=== PATIENT | male | born 1955 | race Caucasian/White ===

== ENCOUNTER 2018-02-15 08:24 | Emergency (ER) | payer MEDICAID ==
[2018-02-15 08:33] VITALS: BMI 31.0
[2018-02-15 08:37] VITALS: RESP 16; TEMP 98.4
--- NOTE | 2018-02-15 08:59 | ED PDOC ---
Arrival/HPI - General Historian: Patient, Family - History of Present Illness Narrative History of Present Illness (Text): 02/15/18 08:57 Patient is a 62 year old [place] male with past medical history of hypertension, asthma, kidney stones, diabetes, hypothyroidism who presents to the emergency dept for right sided flank pain that started this morning. Patient states that at approximately 5am he woke up with Right flank pain. Pain is intermittent in nature and rates it 6-7/10 on pain scale. Pain is similar to when he was diagnosed with renal stone in July 2017. He admits to dysuria after urination. Denies fevers, chills, nausea/vomiting, abdominal pain, hematuria, constipation, diarrhea. PMD: Shanda Bryan Time/Duration: 4-6 hours Symptom Onset: Sudden Symptom Course: Unchanged Severity Level: 7 Activities at Onset: Sleeping <Lisa Sky - Last Filed: 02/15/18 14:11> <Amador Rocha - Last Filed: 02/15/18 18:08> - General Chief Complaint: Pain, Chronic Time Seen by Provider: 02/15/18 08:57 Past Medical History - Provider Review Nursing Documentation Reviewed: Yes - Infectious Disease Hx of Infectious Diseases: None - Tetanus Immunization Tetanus Immunization: Unknown - Cardiac Hx Hypertension: Yes - Pulmonary Hx Asthma: Yes - Neurological Hx Neurological Disorder: No - HEENT Hx HEENT Disorder: No - Renal Hx Kidney Stones: Yes (Bilaterally; 2017) - Endocrine/Metabolic Hx Diabetes Mellitus Type 2: Yes - Hematological/Oncological Hx Blood Disorders: No - Integumentary Hx Dermatological Disorder: No - Musculoskeletal/Rheumatological Hx Musculoskeletal Disorders: Yes Hx Back Pain: Yes Hx Falls: No Hx Gout: Yes - Gastrointestinal Hx Gastrointestinal Disorders: No - Genitourinary/Gynecological Hx Genitourinary Disorders: No - Psychiatric Hx Psychophysiologic Disorder: No Hx Substance Use: No - Surgical History Hx Cardiac Catheterization: Yes - Suicidal Assessment Feels Threatened In Home Enviroment: No <Lisa Sky - Last Filed: 02/15/18 14:11> Family/Social History - Physician Review Nursing Documentation Reviewed: Yes Family/Social History: Unknown Family HX Smoking Status: Never Smoked Hx Alcohol Use: No Hx Substance Use: No Hx Substance Use Treatment: No <Lisa Sky - Last Filed: 02/15/18 14:11> Allergies/Home Meds <Lisa Sky - Last Filed: 02/15/18 14:11> <Amador Rocha - Last Filed: 02/15/18 18:08> Allergies/Adverse Reactions: Allergies No Known Allergies Allergy (Verified 02/15/18 08:37) Home Medications: Home Meds Medication Instructions Recorded Confirmed Acetaminophen with Codeine 1 tab PO Q6H 07/31/17 02/15/18 [Tylenol with Codeine No. 3 300 mg-30 mg] Allopurinol [Zyloprim] 100 mg PO DAILY 07/31/17 02/15/18 Enalapril Maleate [Vasotec] 5 mg PO DAILY 07/31/17 02/15/18 Hydrochlorothiazide [Microzide] 12.5 mg PO DAILY 07/31/17 02/15/18 Levothyroxine [Levoxyl] 0.025 mg PO DAILY 07/31/17 02/15/18 Pantoprazole [Protonix] 40 mg PO DAILY 07/31/17 02/15/18 Potassium Citrate [Urocit-K] 15 meq PO BID 07/31/17 02/15/18 metFORMIN [glucOPHAGE] 1,000 mg PO BID 07/31/17 02/15/18 Review of Systems - Review of Systems Constitutional: Normal. absent: Fatigue, Fevers Eyes: Normal. absent: Vision Changes ENT: Normal. absent: Hearing Changes Respiratory: Normal. absent: SOB, Cough Cardiovascular: Normal. absent: Chest Pain, Palpitations Gastrointestinal: Normal. absent: Abdominal Pain, Constipation, Diarrhea, Nausea, Vomiting Genitourinary Male: Dysuria. absent: Hematuria Neurological: Normal. absent: Headache, Dizziness <Lisa Sky - Last Filed: 02/15/18 14:11> Physical Exam Vital Signs Reviewed: Yes Vital Signs Temp Pulse Resp BP Pulse Ox 02/15/18 08:33 98.4 F 76 16 143/90 96 02/15/18 08:24 98.4 F 76 16 143/90 98 Temperature: Afebrile Blood Pressure: Hypertensive Pulse: Regular Respiratory Rate: Normal Appearance: Positive for: Non-Toxic Pain Distress: Mild Mental Status: Positive for: Alert and Oriented X 3 - Systems Exam Head: Present: Atraumatic, Normocephalic Pupils: Present: PERRL Extroacular Muscles: Present: EOMI Mouth: Present: Moist Mucous Membranes Neck: Present: Normal Range of Motion Respiratory/Chest: Present: Clear to Auscultation, Good Air Exchange. No: Respiratory Distress, Accessory Muscle Use Cardiovascular: Present: Regular Rate and Rhythm, Normal S1, S2 Abdomen: Present: Normal Bowel Sounds. No: Tenderness, Distention, Peritoneal Signs Back: Present: CVA Tenderness (Right) Upper Extremity: Present: Normal Inspection. No: Cyanosis, Edema Lower Extremity: Present: Normal Inspection. No: Edema, CALF TENDERNESS Skin: Present: Warm, Dry, Normal Color Psychiatric: Present: Alert, Oriented x 3 <Lisa Sky - Last Filed: 02/15/18 14:11> Vital Signs Temp Pulse Resp BP Pulse Ox 02/15/18 10:32 79 16 145/89 97 02/15/18 08:33 98.4 F 76 16 143/90 96 02/15/18 08:24 98.4 F 76 16 143/90 98 <Amador Rocha - Last Filed: 02/15/18 18:08> Medical Decision Making ED Course and Treatment: 02/15/18 09:14 Patient seen and examined at bedside. Patient complaining of right flank pain since 5am this morning. +R CVA tenderness on exam. We will order CT abd/pelvis w/o contrast, Urinalysis, Toradol 30mg IVP, Flomax 0.4mg PO, NS 1 L bolus. 02/15/18 10:[address] scan. Currently sleeping comfortably. 02/15/18 12:00 Labs and imaging results reviewed. Patient feeling better. Will discharge patient home with instructions to follow up with PMD outpatient. - RAD Interpretation Narrative RAD Interpretations (Text): 02/15/18 11:12 CT abd/pelvis: no hydronephrosis or obstructing renal calculus. 3.2cm exophytic left renal cyst. Right upper pole renal cyst measures 2.2 cm. 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 62 y/o M p/w bilateral flank pain. On exam, laying still. R CVA tenderness. - Lab Interpretations Lab Results: 02/15/18 09:10 02/15/18 09:10 Lab Results 02/15/18 09:10: Sodium 139, Potassium 4.2, Chloride 105, Carbon Dioxide 26, Anion Gap 12, BUN 18, Creatinine 1.0, Est GFR ( Amer) > 60, Est GFR (Non- Af Amer) > 60, Random Glucose 91, Calcium 8.7, Total Bilirubin 0.5, AST 19, ALT 30, Alkaline Phosphatase 100, Total Protein 7.0, Albumin 3.5, Globulin 3.4, Albumin/Globulin Ratio 1.0 L, Lipase 73 02/15/18 09:10: WBC 9.3, RBC 5.17, Hgb 16.5, Hct 49.1, MCV 95.0, MCH 31.9, MCHC 33.6, RDW 13.6, Plt Count 187, MPV 10.3, Gran % 71.6 H, Lymph % (Auto) 19.4 L, [place] % (Auto) 7.2 H, Eos % (Auto) 1.8, Baso % (Auto) 0.0, Gran # 6.67 H, Lymph # (Auto) 1.8, [place] # (Auto) 0.7 H, Eos # (Auto) 0.2, Baso # (Auto) 0.00 02/15/18 09:10: Urine Color Yellow, Urine Appearance Clear, Urine pH 6.0, Ur Specific [place] 1.020, Urine Protein Negative, Urine Glucose (UA) >=1000, Urine Ketones Negative, Urine Blood Negative, Urine Nitrate Negative, Urine Bilirubin Negative, Urine Urobilinogen 0.2, Ur Leukocyte Esterase Negative - RAD Interpretation Radiology Orders: 02/15/18 09:11 ABD & PELVIS W/O PO OR IV CONT [CT] Stat - Medication Orders Current Medication Orders: Discontinued Medications Sodium Chloride (Sodium Chloride 0.9%) 1,000 mls @ 999 mls/hr IV .Q1H1M STA Stop: 02/15/18 10:14 Last Admin: 02/15/18 09:43 Dose: 999 mls/hr eMAR Start Stop Document 02/15/18 09:43 EB (Rec: 02/15/18 09:45 EB [id number]) Intravenous Solution Start Date 02/15/18 Start Time 09:45 End Date 02/15/18 End time 10:45 Total Infusion Time 60 Ketorolac Tromethamine (Toradol) 30 mg IVP STAT STA Stop: 02/15/18 09:00 Last Admin: 02/15/18 09:41 Dose: 30 mg MAR Pain Assessment Document 02/15/18 09:41 (Rec: 02/15/18 09:42 [email or web address] Pain Reassessment Is this a pain reassessment? No Sleep Is patient sleeping during reassessment? No Presence of Pain Presence of Pain Yes Pain Scale Used Protocol: PSCALES Pain Scale Used Numeric IVP Administration Document 02/15/18 09:41 (Rec: 02/15/18 09:42 [email or web address] Charges for Administration # of IVP Administrations 1 Tamsulosin HCl (Flomax) 0.4 mg PO STAT STA Stop: 02/15/18 09:12 Last Admin: 02/15/18 09:43 Dose: 0.4 mg <Amador Rocha - Last Filed: 02/15/18 18:08> Disposition/Present on Arrival - Present on Arrival Any Indicators Present on Arrival: No History of DVT/PE: No History of Uncontrolled Diabetes: No Urinary Catheter: No History of Decub. Ulcer: No History Surgical Site Infection Following: None - Disposition Have Diagnosis and Disposition been Completed?: Yes Patient Plan: Discharge <Lisa Sky - Last Filed: 02/15/18 14:11> - Present on Arrival Any Indicators Present on Arrival: No - Disposition Have Diagnosis and Disposition been Completed?: Yes Disposition Time: 12:00 Patient Plan: Discharge <Amador Rocha - Last Filed: 02/15/18 18:08> - Disposition Diagnosis: Flank pain Disposition: HOME/ ROUTINE Condition: GOOD Discharge Instructions (ExitCare): Flank Pain Prescriptions: Famotidine [Pepcid] 1 tab PO BID #14 tab Ibuprofen [Motrin] 600 mg PO Q6 #25 tab Referrals: Shanda Bryan MD [Family Provider] - Follow up with primary Forms: [employer] (Hungarian)
[2018-02-15] MEDS ORDERED: Sodium Chloride 0.9% 1,000 ML IV STA (09:14)
[2018-02-15 09:27] LABS: URINE APPEARANCE CLEAR (CLEAR); URINE BILIRUBIN NEGATIVE (NEGATIVE); URINE BLOOD NEGATIVE (NEGATIVE); URINE COLOR YELLOW (YELLOW); URINE GLUCOSE (UA) >=1000 mg/dL (NEGATIVE); URINE LEUKOCYTE ESTERASE NEGATIVE Leu/uL (NEGATIVE); URINE PROTEIN NEGATIVE mg/dL (<30 mg/dL); URINE UROBILINOGEN 0.2 E.U./dL (<1 E.U./dL)
--- NOTE | 2018-02-15 11:02 | CT ---
PROCEDURE: CT Abdomen and Pelvis without Oral or IV contrast. HISTORY: R flank pain, hx of renal stones COMPARISON: None available. TECHNIQUE: Contiguous axial images of the abdomen and pelvis. No oral or IV contrast administered. Coronal and Sagittal reformats generated and reviewed. Radiation dose: Total exam DLP = 969.34 mGy-cm. This CT exam was performed using one or more of the following dose reduction techniques: Automated exposure control, adjustment of the mA and/or kV according to patient size, and/or use of iterative reconstruction technique. FINDINGS: There is limited evaluation of the solid organs without the administration of IV contrast. LOWER THORAX: Mild bibasilar atelectasis. There is no visible pleural effusion or pneumothorax. Small hiatal hernia/distal esophageal wall thickening. LIVER: Unremarkable unenhanced appearance. GALLBLADDER AND BILE DUCTS: Unremarkable unenhanced appearance. PANCREAS: Unremarkable unenhanced appearance. SPLEEN: 9 mm probable splenule. Otherwise unremarkable unenhanced appearance. ADRENALS: Unremarkable unenhanced appearance. KIDNEYS AND URETERS: No hydronephrosis or obstructing renal calculus. 3.2 cm exophytic left renal cyst. Right upper pole renal cyst measures 2.2 cm. BLADDER: The urinary bladder appears unremarkable. REPRODUCTIVE: Unremarkable. APPENDIX: The appendix appears within normal limits of caliber. No secondary signs of acute appendicitis. BOWEL: The stomach is nondistended. Lack of oral contrast limits evaluation for bowel pathology. The bowel loops appear within normal limits of caliber without evidence of intestinal obstruction. PERITONEUM: No significant free fluid. No definite free air. LYMPH NODES: No bulky lymphadenopathy identified. VASCULATURE: Atherosclerotic calcifications of the aorta and branches. No aortic aneurysm. BONES: No acute osseous abnormality is detected. OTHER FINDINGS: None. IMPRESSION: Bilateral renal cysts.
[2018-02-15 11:30] LABS: EOS # 0.2 (0.0-0.7); EOS % 1.8 % (1.5-5.0); GRAN # 6.67 (1.4-6.5); GRAN % 71.6 % (50.0-68.0); HEMOGLOBIN 16.5 g/dL (14.0-18.0); LYMPH # 1.8 (1.2-3.4); LYMPH % 19.4 % (22.0-35.0); MEAN CORPUSCULAR HEMOGLOBIN 31.9 pg (25.0-35.0); MEAN CORPUSCULAR HGB CONC 33.6 g/dl (31.0-37.0); MEAN PLATELET VOLUME 10.3 fl (7.0-11.0); MONO # 0.7 (0.1-0.6); MONO % 7.2 % (1.0-6.0); RBC 5.17 10^6/uL (3.5-6.1); RED CELL DISTRIBUTION WIDTH 13.6 % (11.5-14.5); WHITE BLOOD COUNT 9.3 10^3/uL (4.5-11.0)
[2018-02-15 11:37] LABS: ALBUMIN 3.5 g/dL (3.0-4.8); ALT/SGPT 30 U/L (7-56); AST/SGOT 19 U/L (17-59); BLOOD UREA NITROGEN 18 mg/dL (7-21); CALCIUM 8.7 mg/dL (8.4-10.5); GFR NON-AFRICAN AMERICAN > 60; LIPASE 73 U/L (23-300)
[2018-02-15 12:11] VITALS: BP 141/84; PULSE 69; O2SAT 100
== END 2018-02-15 12:17 | disposition home or self-care (01) ==
LOC: ED 08:24
DX: R10.9 Unspecified abdominal pain (principal); I10 Essential (primary) hypertension; E11.9 Type 2 diabetes mellitus without complications; Z87.442 Personal history of urinary calculi
CPT/HCPCS: 74176; 80053; 81003; 83690; 85025; 96361; 96374; 99284; J1885; J7030